=== PATIENT | male | born 1995 | race Caucasian/White ===

== ENCOUNTER 2019-08-14 16:49 | Emergency (ER) | payer OTHER ==
[2019-08-14 17:02] VITALS: BP 159/89
== END 2019-08-14 18:25 | disposition home or self-care (01) ==
LOC: M ED 16:49
DX: Z20.828 Contact with and (suspected) exposure to other viral communicable diseases (principal)
CPT/HCPCS: 87486; 87581; 87633; 87798; 99282; U0002